=== PATIENT | female | born 1985 | race Caucasian/White ===

== ENCOUNTER 2018-07-06 09:42 | Emergency (ER) | payer OTHER ==
[~2018-07-06] VITALS: Ht 157.5 cm; Wt 52.2 kg
[2018-07-06] MEDS ORDERED: TUSSI PRES-B L120 M1 PO (13:03)
[2018-07-06] MEDS ORDERED: ZITHROMAX TRI-500 MG PO (13:03)
== END 2018-07-06 13:40 | disposition home or self-care (01) ==
LOC: ER 09:42
DX: B34.9 Viral infection, unspecified (principal)